=== PATIENT | female | born 2005 | race Two or more races ===

== ENCOUNTER 2023-03-07 00:29 | Day surgery (SDC) | payer MEDICAID, SELFPAY ==
[2023-03-07] VITALS (12 sets, daily range): BP systolic 116–155; BP diastolic 51–87; PULSE 59–87; RESP 16–18; TEMP 36.3–36.8; O2SAT 98–100; BMI 33.0
--- NOTE | ~2023-03-07 | US_ITS ---
EXAMINATION: US ABDOMEN LIMITED CLINICAL INFORMATION: Right upper quadrant/epigastric pain.. COMPARISON: None available. TECHNIQUE: Real-time imaging of the right upper quadrant abdominal viscera. FINDINGS: PANCREAS: Visualized portions of pancreas are normal in appearance. LIVER: Normal. The liver is normal in size. The liver contour is normal. Parenchymal echogenicity is normal. No focal hepatic lesion. There is no intrahepatic biliary duct dilatation seen. GALLBLADDER: The gallbladder is physiologically distended. Several gallstones are noted. Overall the gallbladder wall is normal in thickness although there is a localized area of gallbladder wall thickening measuring up to 5 mm the along the undersurface of the liver. There is some associated minimal fluid within the gallbladder wall in this region. Technologist reports a negative sonographic Ribeiro's sign. COMMON BILE DUCT: Normal in caliber measuring 0.3 cm in diameter. RIGHT KIDNEY: Normal. No hydronephrosis. No renal calculi or focal parenchymal lesions. The kidney measures 9.6 cm in maximum dimension. FREE FLUID: None. US/US abdomen limited IMPRESSION: Cholelithiasis. Overall the gallbladder wall is normal in thickness although there is a localized area of gallbladder wall thickening measuring up to 5 mm the undersurface of the liver. There is some associated fluid within the gallbladder wall in this region. Technologist reports a negative sonographic Ribeiro's sign. Findings are equivocal for acute cholecystitis. Further evaluation can be obtained with nuclear medicine imaging as clinically indicated.
[2023-03-07 01:08] LABS: MANUAL DIFF FLAG NO
[2023-03-07 01:09] LABS: Basophils Percent Auto 0.3 % (0-2); Eosinophils Percent Auto 0.4 % (0-4); Hematocrit 38.4 % (37.0-47.0); Hemoglobin 11.8 g/dl (12.0-16.0); Imm Gran Abs Auto 0.04 X10*3/uL (0.00-0.03); Imm Gran Pct Auto 0.4 % (0.0-0.4); Lymphocytes Absolute Auto 2.3 X10*3/uL (1.2-4.9); Lymphocytes Percent Auto 22.3 % (20-40); Mean Corpuscular HGB Conc 30.7 g/dl (31.0-35.0); Mean Corpuscular Hemoglobin 25.9 pg (27.0-33.0); Mean Corpuscular Volume 84.4 fL (80.0-98.0); Mean Platelet Volume 10.5 fL (9.4-12.3); Monocytes Absolute Auto 0.7 X10*3/uL (0.1-1.2); Monocytes Percent Auto 6.3 % (2-11); Neutrophils Absolute Auto 7.2 x10*3/uL (2.0-8.3); Neutrophils Percent Auto 70.3 % (45-73); Platelet Count 383 X10*3/uL (160-400); Red Blood Count 4.55 X10*6/uL (4.20-5.50); Red Cell Distribution Width 12.1 % (11.0-16.0); White Blood Count 10.3 X10*3/uL (4.8-10.8)
[2023-03-07 01:10] LABS: Appearance Urine Cloudy; Color Urine Dark Yellow; Glucose Urine UA Negative (Negative); Leukocyte Esterase Urine Negative (Negative); Nitrite Urine Negative (Negative); Specific Gravity - Urine >= 1.030 (1.005-1.025); UMIC TRIGGER UACC YES; Urine Blood Trace (Negative); Urine Ketones 80 mg/dL (Negative); Urine Protein 30 (1+) mg/dL (Neg-Trace)
[2023-03-07 01:12] LABS: Bacteria Urine None Seen (None Seen); WBC Urine 0-5 /HPF (0-5)
[2023-03-07 01:24] LABS: Alanine Aminotransferase 12 U/L (0-31); Albumin Level 4.7 g/dL (3.5-5.0); Alkaline Phosphatase 115 U/L (39-117); Anion Gap 19 (12-20); Aspartate Amino Transferase 13 U/L (5-31); Bilirubin Total 0.3 mg/dL (0.0-1.0); Blood Urea Nitrogen 9 mg/dL (9-16); Calcium 10.1 mg/dL (8.4-10.2); Carbon Dioxide 22 mmol/L (22-29); Chloride 102 mmol/L (96-108); Creatinine Clr Calc Pharmacy 133.9; Estimated Glomerular Filt Rate > 60; Glucose Random 102 mg/dL (60-115); Potassium 3.5 mmol/L (3.3-5.1); Sodium 139 mmol/L (135-145); Total Protein 8.5 g/dL (6.5-8.0)
--- NOTE | 2023-03-07 07:51 | ED_ITS ---
HPI - Abdominal Pain General Chief Complaint: Abdominal Pain Stated Complaint: Abd pain Time Seen by Provider: 03/07/23 07:41 Source: patient and family Mode of arrival: ambulatory History of Present Illness HPI narrative: 18-year-old female with complaints initial pain that started yesterday afternoon/evening in the right upper quadrant/epigastric area associated with nausea and vomiting. Although the nausea and vomiting have subsided patient denies any fever chills she continues to have right upper quadrant/epigastric pain with radiation into the back. Related Data Previous Rx's Medication Instructions Recorded hydrocodone 5 mg-acetaminophen 325 1 tab PO Q4-6H PRN pain #30 tabs 03/07/23 mg tablet Allergies Allergy/AdvReac Type Severity Reaction Status Date / Time No Known Allergies Allergy Verified 03/07/23 00:50 Review of Systems Review of Systems Pertinent positives and negatives as stated in HPI PMFSH Past Medical History Source: nursing notes reviewed Social History Social History Alcohol intake: never Physical Exam ED Vital Signs: Vital Signs - 24 hr 03/07/23 00:48 03/07/23 05:49 03/07/23 07:35 Temperature 98.2 F 98.3 F Pulse Rate 69 65 69 Respiratory Rate 18 18 16 Blood Pressure 129/72 138/84 116/78 Pulse Oximetry 99 99 99 Oxygen Delivery Method Room Air Room Air Room Air BMI result Body Mass Index 33.0 VITAL SIGNS: Reviewed. GENERAL: Well developed, well nourished, in no acute distress. HEAD: Normocephalic/atraumatic EYES: PERRLA, EOMI EARS: Ext canals without abnormality NOSE: Nares patent bilateral OROPHARYNX: no oral lesions noted, posterior pharynx clear NECK: Supple, no adenopathy LUNGS: Normal breath sounds. No adventitious sounds or accessory muscle use. SpO2<99> CARDIOVASCULAR: Regular rate and rhythm without noted murmurs ABDOMEN: Soft, tenderness to palpation in right upper quadrant/epigastric, non-d istended with bowel sounds. MUSCULOSKELETAL: No tenderness, deformities, or effusions noted on gross inspection. EXTREMITIES: No cyanosis, clubbing or edema. SKIN: Inspection of the skin reveals no rashes NEUROLOGIC: Alert and oriented x 4. Strength and sensation to light touch were grossly intact x 4. Medical Decision Making Medical Decision Making [facility] Narrative: 0815: 18-year-old female with history and clinical presentation, DDX: Gastritis, cholecystitis, pancreatitis, less likely felt to be pyelonephritis renal colic. Patient is status post appendectomy. I reviewed all investigations hematologic indices to not demonstrate a leukocytosis or left shift and there is a mild normocytic anemia without thrombocytopenia. Patient is afebrile, chemistry indices are grossly within normal limits without electrolyte abnormalities, there is no NADER and liver enzymes her without abnormalities as well. Urinalysis is negative for UTI and urine is negative. However, after review of ultrasound results there is obvious cholelithiasis with gallbladder wall thickening and evidence to suggest pericholecystic fluid, patient continues to be tender to palpation although the nausea has subsided. I contacted general surgery who agrees with IV/NPO/IV fluids/antibiotics. I to gas and blood cultures will be obtained prior to administration of antibiotics. Differential Diagnosis Differential Diagnoses: The differential diagnosis associated with the presentation includes Please see the discussion above Admission/Observation Consideration of admission/observation: Escalation of care including admission/observation considered Please see the discussion above Consult Healthcare Provider Management of the patient was discussed with: Coal Yard Supervisor Please see discussion above Lab Data [facility] Lab Attestation statement: I reviewed the patient's lab results. Please see discussion above 03/07/23 01:02 03/07/23 01:02 Labs: Lab Results 03/07/23 03/07/23 03/07/23 Range/Units 01:02 01:02 01:02 WBC 10.3 (4.8-10.8) X10*3/uL RBC 4.55 (4.20-5.50) X10*6/uL Hgb 11.8 L (12.0-16.0) g/dl Hct 38.4 (37.0-47.0) % MCV 84.4 (80.0-98.0) fL MCH 25.9 L (27.0-33.0) pg MCHC 30.7 L (31.0-35.0) g/dl RDW 12.1 (11.0-16.0) % Plt Count 383 (160-400) X10*3/uL MPV 10.5 (9.4-12.3) fL Immature Gran % (Auto) 0.4 (0.0-0.4) % Neut % (Auto) 70.3 (45-73) % Lymph % (Auto) 22.3 (20-40) % [place] % (Auto) 6.3 (2-11) % Eos % (Auto) 0.4 (0-4) % Baso % (Auto) 0.3 (0-2) % Lymph # (Auto) 2.3 (1.2-4.9) X10*3/uL [place] # (Auto) 0.7 (0.1-1.2) X10*3/uL Eos # (Auto) 0.0 (0.0-0.4) X10*3/uL Baso # (Auto) 0.0 (0.0-0.2) X10*3/uL Abs Immat Gran (auto) 0.04 H (0.00-0.03) X10*3/uL Absolute Neuts (auto) 7.2 (2.0-8.3) x10*3/uL Absolute Nucleated RBC 0.000 (0.0-0.012) X10*3/uL Nucleated RBC % (auto) 0.0 (0.0-0.2) /100WBC Sodium 139 (135-145) mmol/L Potassium 3.5 (3.3-5.1) mmol/L Chloride 102 (96-108) mmol/L Carbon Dioxide 22 (22-29) mmol/L Anion Gap 19 (12-20) BUN 9 (9-16) mg/dL Creatinine 0.69 (0.5-1.4) mg/dL Estim Creat Clear Calc 133.9 Estimated GFR > 60 Random Glucose 102 (60-115) mg/dL Lactic Acid (0.5-2.0) mmol/L Calcium 10.1 (8.4-10.2) mg/dL Total Bilirubin 0.3 (0.0-1.0) mg/dL AST 13 (5-31) U/L ALT 12 (0-31) U/L Alkaline Phosphatase 115 (39-117) U/L Total Protein 8.5 H (6.5-8.0) g/dL Albumin 4.7 (3.5-5.0) g/dL Lipase 19 (8-78) U/L Urine Color Dark Yellow Urine Appearance Cloudy Urine pH 6.0 (5.0-9.0) Ur Specific [place] >= 1.030 H (1.005-1.025) Urine Protein 30 (1+) H (Neg-Trace) mg/dL Urine Glucose (UA) Negative (Negative) mg/dL Urine Ketones 80 (Negative) mg/dL Urine Blood Trace H (Negative) Urine Nitrite Negative (Negative) Ur Leukocyte Esterase Negative (Negative) Urine RBC 11-20 H (0-2) /HPF Urine WBC 0-5 (0-5) /HPF Ur Squamous Epith Cells 3-5 (0-2) /HPF Urine Bacteria None Seen (None Seen) Hyaline Casts 3-5 (0-2) /LPF Urine Test (NEGATIVE) 03/07/23 03/07/23 Range/Units 01:02 08:29 WBC (4.8-10.8) X10*3/uL RBC (4.20-5.50) X10*6/uL Hgb (12.0-16.0) g/dl Hct (37.0-47.0) % MCV (80.0-98.0) fL MCH (27.0-33.0) pg MCHC (31.0-35.0) g/dl RDW (11.0-16.0) % Plt Count (160-400) X10*3/uL MPV (9.4-12.3) fL Immature Gran % (Auto) (0.0-0.4) % Neut % (Auto) (45-73) % Lymph % (Auto) (20-40) % [place] % (Auto) (2-11) % Eos % (Auto) (0-4) % Baso % (Auto) (0-2) % Lymph # (Auto) (1.2-4.9) X10*3/uL [place] # (Auto) (0.1-1.2) X10*3/uL Eos # (Auto) (0.0-0.4) X10*3/uL Baso # (Auto) (0.0-0.2) X10*3/uL Abs Immat Gran (auto) (0.00-0.03) X10*3/uL Absolute Neuts (auto) (2.0-8.3) x10*3/uL Absolute Nucleated RBC (0.0-0.012) X10*3/uL Nucleated RBC % (auto) (0.0-0.2) /100WBC Sodium (135-145) mmol/L Potassium (3.3-5.1) mmol/L Chloride (96-108) mmol/L Carbon Dioxide (22-29) mmol/L Anion Gap (12-20) BUN (9-16) mg/dL Creatinine (0.5-1.4) mg/dL Estim Creat Clear Calc Estimated GFR Random Glucose (60-115) mg/dL Lactic Acid 0.7 (0.5-2.0) mmol/L Calcium (8.4-10.2) mg/dL Total Bilirubin (0.0-1.0) mg/dL AST (5-31) U/L ALT (0-31) U/L Alkaline Phosphatase (39-117) U/L Total Protein (6.5-8.0) g/dL Albumin (3.5-5.0) g/dL Lipase (8-78) U/L Urine Color Urine Appearance Urine pH (5.0-9.0) Ur Specific [place] (1.005-1.025) Urine Protein (Neg-Trace) mg/dL Urine Glucose (UA) (Negative) mg/dL Urine Ketones (Negative) mg/dL Urine Blood (Negative) Urine Nitrite (Negative) Ur Leukocyte Esterase (Negative) Urine RBC (0-2) /HPF Urine WBC (0-5) /HPF Ur Squamous Epith Cells (0-2) /HPF Urine Bacteria (None Seen) Hyaline Casts (0-2) /LPF Urine Test NEGATIVE (NEGATIVE) Medications Administered Discontinued Medications Generic Name Dose Route Start Last Admin Trade Name Freq PRN Reason Stop Dose Admin Piperacillin Sod/Tazobactam 50 mls @ 100 mls/hr 03/07/23 08:25 03/07/23 10:22 Sod 3.375 gm/ Sodium Chloride IV 03/07/23 08:54 Infused ONCE ONE Infusion Sodium Chloride 1,000 mls @ 999 mls/hr 03/07/23 08:30 03/07/23 10:01 Ns IV 03/07/23 09:30 Infused .Q1H1M SANTO Infusion Acetaminophen 1,000 mg in 100 mls @ 400 mls/hr 03/07/23 12:20 03/07/23 14:54 Ofirmev IV 03/07/23 12:34 400 mls/hr ONCE ONE Administration Ketorolac Tromethamine 15 mg 03/07/23 08:31 03/07/23 08:43 Ketorolac Tromethamine 30 Mg/Ml Vial IVPUSH 03/07/23 08:32 15 mg ONCE ONE Administration Ondansetron HCl 4 mg 03/07/23 08:31 03/07/23 08:43 Ondansetron Hcl 4 Mg/2 Ml Vial IVPUSH 03/07/23 08:32 4 mg ONCE ONE Administration Oxycodone HCl 5 mg 03/07/23 12:20 03/07/23 14:45 Oxycodone Hcl Immed Release 5 Mg Tablet PO 5 mg ONCE PRN Administration Pain, Severe (Pain Scale 7-10) Critical Care Time Critical Care Time Critical Care Time: Yes Total Critical Care Time: 30 Attestation: I personally attest to this time spent taking care of the patient. Discharge Plan Discharge Clinical Impression: Cholecystitis, acute Patient Disposition: Admitted As Inpatient Transfer Details: Transferred to OR Discharge Date/Time: 03/07/23 12:52
[2023-03-07 08:00] LABS: UPreg QC Valid YES; Urine Pregnancy NEGATIVE (NEGATIVE)
[2023-03-07] MEDS: 0.9 % Sodium Chloride 1,000 ML 999 ML IV (08:35)
[2023-03-07] MEDS: ondansetron HCL 4 MG/2 ML VIAL IVPUSH (08:43)
[2023-03-07] MEDS: Ketorolac Tromethamine 30 MG/ML VIAL 15 MG IVPUSH (08:43)
[2023-03-07 08:53] LABS: Lactic Acid 0.7 mmol/L (0.5-2.0)
[2023-03-07 08:55] LABS: Lipase 19 U/L (8-78)
--- NOTE | 2023-03-07 09:42 | PC.NURSE ---
abx delayed dt inability to obtain second blood cultures.
[2023-03-07] MEDS: Piperacillin Sodium/Tazobactam 3.375 GM in 0.9 % Sodium Chloride 50 ML IV (09:44)
--- NOTE | 2023-03-07 09:45 | PHA.MEDREC ---
Pharmacy Consult ? Medication Reconciliation Pharmacy has completed the medication reconciliation.
--- NOTE | 2023-03-07 12:18 | P.CONAN_ITS ---
HPI - Anesthesia Eval Consult details Narrative: Cholelithiasis [facility] Family History Family history of problems with anesthesia: No Surgical History History of Problems with Anesthesia: No Social History Social History Alcohol intake: never Meds Allergies Allergy/AdvReac Type Severity Reaction Status Date / Time No Known Allergies Allergy Verified 03/07/23 00:50 Exam Exam Date and Time: March 07, 2023 1218 Height,Weight and Vital Signs: Height 5 ft 3 in Weight 84.5 kg Last Vital Signs Temp 98.3 F 03/07/23 07:35 Pulse 60 03/07/23 10:32 Resp 16 03/07/23 10:32 BP 122/74 03/07/23 10:32 Pulse Ox 98 03/07/23 10:32 O2 Del Method Room Air 03/07/23 10:32 Pertinent Lab Results Pertinent Lab Results: Laboratory Tests 03/07/23 03/07/23 03/07/23 01:02 01:02 01:02 WBC 10.3 RBC 4.55 Hgb 11.8 L Hct 38.4 MCV 84.4 MCH 25.9 L MCHC 30.7 L RDW 12.1 Plt Count 383 MPV 10.5 Immature Gran % (Auto) 0.4 Neut % (Auto) 70.3 Lymph % (Auto) 22.3 [place] % (Auto) 6.3 Eos % (Auto) 0.4 Baso % (Auto) 0.3 Lymph # (Auto) 2.3 [place] # (Auto) 0.7 Eos # (Auto) 0.0 Baso # (Auto) 0.0 Abs Immat Gran (auto) 0.04 H Absolute Neuts (auto) 7.2 Absolute Nucleated RBC 0.000 Nucleated RBC % (auto) 0.0 Sodium 139 Potassium 3.5 Chloride 102 Carbon Dioxide 22 Anion Gap 19 BUN 9 Creatinine 0.69 Estim Creat Clear Calc 133.9 Estimated GFR > 60 Random Glucose 102 Lactic Acid Calcium 10.1 Total Bilirubin 0.3 AST 13 ALT 12 Alkaline Phosphatase 115 Total Protein 8.5 H Albumin 4.7 Lipase 19 Urine Color Dark Yellow Urine Appearance Cloudy Urine pH 6.0 Ur Specific [place] >= 1.030 H Urine Protein 30 (1+) H Urine Glucose (UA) Negative Urine Ketones 80 Urine Blood Trace H Urine Nitrite Negative Ur Leukocyte Esterase Negative Urine RBC 11-20 H Urine WBC 0-5 Ur Squamous Epith Cells 3-5 Urine Bacteria None Seen Hyaline Casts 3-5 Urine Test 03/07/23 03/07/23 01:02 08:29 WBC RBC Hgb Hct MCV MCH MCHC RDW Plt Count MPV Immature Gran % (Auto) Neut % (Auto) Lymph % (Auto) [place] % (Auto) Eos % (Auto) Baso % (Auto) Lymph # (Auto) [place] # (Auto) Eos # (Auto) Baso # (Auto) Abs Immat Gran (auto) Absolute Neuts (auto) Absolute Nucleated RBC Nucleated RBC % (auto) Sodium Potassium Chloride Carbon Dioxide Anion Gap BUN Creatinine Estim Creat Clear Calc Estimated GFR Random Glucose Lactic Acid 0.7 Calcium Total Bilirubin AST ALT Alkaline Phosphatase Total Protein Albumin Lipase Urine Color Urine Appearance Urine pH Ur Specific [place] Urine Protein Urine Glucose (UA) Urine Ketones Urine Blood Urine Nitrite Ur Leukocyte Esterase Urine RBC Urine WBC Ur Squamous Epith Cells Urine Bacteria Hyaline Casts Urine Test NEGATIVE Airway Mallampati Class: II TM Dist: >3cm Neck ROM: Full Loose/Missing/Broken Teeth: No Heart: RRR Lungs: CTA Assessment and Plan Assessment Anesthesia Assessment: Anesthesia Plan Discussed and Chart Reviewed Final Anesthetic Review Family History of Problems with Anesthesia: No History of Problems with Anesthesia: No NPO: Yes ASA Class: I and Emergency Final Preanesthetic Review: No Changes in Pt Med Stat, Meds/Allgs Chart Reviewed, Consent Obtained/Reviewed and Anes Risks/Benef Reviewed Patient Risk: Low Procedure Risk: Intermediate Anesthetic Plan Anesthetic Plan: GA Disposition: Standard PACU
--- NOTE | 2023-03-07 12:25 | PC.NURSE ---
Addendum entered by Carolyn Hoffman RN 03/07/23 12:56: PT transferred to surgery with surgeon, mom escorted to waiting room, RN took over at Pre-op Original Note: report given to surgery, pt has removed jewelry and mom has all that was removed.
--- NOTE | 2023-03-07 12:29 | P.HPGS_ITS ---
History of Present Illness History of Present Illness Date of Service: 03/07/23 Chief complaint: Abd pain Narrative: Shasta Bryson is a 18 year old female presents with approximate 1 day history of right upper quadrant pain rating around her back associated nausea vomiting. Workup included sonogram demonstrates findings consistent with the acute cholecystitis. CT was reviewed and patient evaluated. Past surgical history appendectomy laparoscopic. No significant medical pr oblems. No known drug allergies LFTs within normal limits. Sonogram reviewed [facility] Social History Social History Alcohol intake: never Smoked in Last 30 Days: No Use of substances other than those prescribed or required for medical reasons: No Advance Directives: No Meds Allergies Allergy/AdvReac Type Severity Reaction Status Date / Time No Known Allergies Allergy Verified 03/07/23 00:50 Active Medications: Current Medications Fentanyl (Fentanyl Citrate/Pf 100 Mcg/2 Ml Vial) 50 mcg IVPUSH Q5M PRN; Protocol PRN Reason: Pain, Severe (Pain Scale 7-10) Hydromorphone HCl (Hydromorphone Hcl 0.5 Mg/0.5 Ml Syringe) 0.5 mg IVPUSH Q5M PRN; Protocol PRN Reason: Pain, Severe (Pain Scale 7-10) Promethazine HCl 12.5 mg/ (Sodium Chloride) 50.5 mls @ 202 mls/hr IV ONCE PRN PRN Reason: Nausea and Vomiting Acetaminophen (Ofirmev) 1,000 mg in 100 mls @ 400 mls/hr IV ONCE ONE Stop: 03/07/23 12:34 Ondansetron HCl (Ondansetron Hcl 4 Mg/2 Ml Vial) 4 mg IVPUSH ONCE PRN PRN Reason: Nausea and Vomiting Oxycodone HCl (Oxycodone Hcl Immed Release 5 Mg Tablet) 5 mg PO ONCE PRN PRN Reason: Pain, Severe (Pain Scale 7-10) Home Medications Medication Instructions Recorded Confirmed Last Taken Type No Known Home Meds 03/07/23 03/07/23 Unknown History Physical Exam Vital Signs: Vital Signs: Last Vital Signs Temp 98.3 F 03/07/23 07:35 Pulse 60 03/07/23 10:32 Resp 16 03/07/23 10:32 BP 122/74 03/07/23 10:32 Pulse Ox 98 07/29/23 10:32 O2 Del Method Room Air 03/07/23 10:32 BMI result Body Mass Index 33.0 Const: Other: Patient was evaluated in presence of her mother. Chest: Other: Chest breath sounds bilaterally, HS 1 in 2 GI: Other: Abdomen moderately corpulent. Laparoscopic appendectomy scars well healed. Marked right upper quadrant tenderness. Results Results Labs: Short CBC 03/07/23 Range/Units 01:02 WBC 10.3 (4.8-10.8) X10*3/uL Hgb 11.8 L (12.0-16.0) g/dl Hct 38.4 (37.0-47.0) % Plt Count 383 (160-400) X10*3/uL BMP 03/07/23 01:02 Sodium 139 Potassium 3.5 Chloride 102 Carbon Dioxide 22 BUN 9 Creatinine 0.69 Calcium 10.1 Liver Function 03/07/23 Range/Units 01:02 Total Bilirubin 0.3 (0.0-1.0) mg/dL AST 13 (5-31) U/L ALT 12 (0-31) U/L Alkaline Phosphatase 115 (39-117) U/L Albumin 4.7 (3.5-5.0) g/dL Urine 03/07/23 03/07/23 Range/Units 01:02 01:02 Urine Color Dark Yellow Urine Appearance Cloudy Urine pH 6.0 (5.0-9.0) Ur Specific [place] >= 1.030 H (1.005-1.025) Urine Protein 30 (1+) H (Neg-Trace) mg/dL Urine Glucose (UA) Negative (Negative) mg/dL Urine Test NEGATIVE (NEGATIVE) Assessment and Plan (1) Cholecystitis, acute: Status: Acute Plan Risks, benefits, alternatives of laparoscopic possible open cholecystectomy reviewed with the patient and her mother and included but not limited to bleeding, infection, recurrence of symptoms, numbness, pain, scarring, bowel or duct injury or leak and the patient wishes to proceed. All questions were answered. Arrangements will be made for this for today. Time Spent With Patient Time: Total time managing care of this patient today ____ minutes. Quality Stroke Does the patient have a stroke diagnosis?: No VTE Prior VTE?: No VTE Risk Level:: Surgical - low VTE Device Contraindication: Treatment Not Indicated VTE Drug Contraindication: Treatment Not Indicated Procedures Date of Service Date of Service: 03/07/23
--- NOTE | 2023-03-07 14:20 | W.PM.OPN ---
Operative Note Operative Note Date of Service: 03/07/23 Narrative: Preoperative diagnosis: []Acute cholecystitis Postop diagnosis: [] hydrops of gallbladder Procedure [] laparoscopic cholecystectomy Surgeon: [] Nasir Reproduction Production Manager: [] Type of Anesthesia: [] general Indication for surgery: [] Markedly edematous gallbladder. Aspiration demonstrated findings consistent with hydrops. Corpulent abdomen. Intrahepatic gallbladder. Procedure; patient Was brought to the operating room, placed on the operative table in a supine position, and after an adequate level of general anesthesia was induced, the patient's abdomen was prepped and draped in usual sterile fashion. Using a supraumbilical curvilinear incision from a previous scar from a prior laparoscopic appendectomy, this carried down through skin, subcutaneous tissue, were Flores technique was used to insufflate the abdominal cavity to 15 mm of CO2. Upper midline MRI subcostal ports were placed under direct laparoscopic view, and the patient was placed in reverse Trendelenburg position, tilted to the left. Findings were as noted above. Gallbladder was initially decompressed because of his marked urgent a T where clear fluid was aspirated consistent with hydrops. Gallbladder was then grasped with laparoscopic graspers, and retracted superiorly and laterally. Hilum was approached. Common bile duct was identified and preserved throughout the procedure. Cystic artery and cystic duct were each identified, circumferentially skeletonized, and each traced directly to the gallbladder and critical view obtained. Each was clipped proximally x2, distally x1, and transected. Gallbladder was then cauterized the gallbladder fossa using electro Bovie. As noted, the gallbladder is markedly intrahepatic. A small posterior setting the vessel in the gallbladder fossa was clipped as well. Once removed, gallbladder was placed in an Endo catch bag and retrieved through the umbilical port. Abdominal cavity was copiously irrigated, and secured hemostasis. All ports were removed under direct laparoscopic view. Wounds were closed in the following manner; umbilical wound had its fascia reapproximated using interrupted 0 Vicryl suture. Skin wounds were closed using subcuticular 4-0 Vicryl sutures followed by Steri-Strips and sterile dressings. Wounds were infiltrated 0.5 some marked at completion. Sponge, needle, instrument counts reported correct. Patient tolerated the procedure well and emerged anesthesia in stable condition. EBL minimal
[2023-03-07] MEDS: oxyCODONE HCl Immed Release 5 MG TABLET PO (14:45)
[2023-03-07] MEDS: Acetaminophen 1,000 MG/100 ML PIGGYBACK 400 MG IV (14:54)
--- NOTE | 2023-03-08 09:53 | HO.POSTANES ---
Post Anesthesia Evaluation Post Anesthesia Evaluation Date of Service: 03/08/23 Anesthesia: General Endotracheal-GETA Mental Status: Awake Pain Control: Satisfactory Nausea/Vomiting: None Hydration: Adequate Anesthesia-Related Issues: No Anes. Related Issues
== END 2023-03-07 15:35 | disposition home or self-care (01) ==
LOC: HO.ED 07:41 → HO.SSS 11:02
PROVIDERS: Emergency Provider Student in an Organized Health Care Education/Training Program; PCP Family Medicine; Visit Provider Surgery
PROC: 0FT44ZZ Resection of Gallbladder, Percutaneous Endoscopic Approach (ICD-10-PCS; CPT 47562; principal; 2023-03-07 12:30)
DX: K80.12 Calculus of gallbladder with acute and chronic cholecystitis without obstruction (principal); K82.1 Hydrops of gallbladder; R10.11 Right upper quadrant pain; Q44.1 Other congenital malformations of gallbladder; D64.9 Anemia, unspecified
CPT/HCPCS: 47562; 36415; 76705; 80053; 81001; 81025; 83605; 83690; 85025; 87040; 88304; 96361; 96365; 96375; 99285; J0131; J1100; J1885; J2250; J2405; J2543; J2795; J3010

== ENCOUNTER → 2023-03-07 10:55 | Outpatient (BNV) | payer MEDICAID, SELFPAY | PROVIDERS: Emergency Provider Student in an Organized Health Care Education/Training Program; PCP Family Medicine; Visit Provider Surgery | DX: K81.0 Acute cholecystitis (principal) | CPT/HCPCS: 47562; 99223 ==

== ENCOUNTER 2023-03-18 09:20 | Outpatient (AMB) | payer MEDICAID, SELFPAY ==
[2023-03-18 09:23] VITALS: BP 123/57; PULSE 78
--- NOTE | 2023-03-18 09:23 | A.OFFVIS_ITS ---
Intake Vital Signs 03/18/23 09:23 Weight 181 lb BP 123/57 L Blood Pressure Location Rt brachial Position Sitting Pulse 78 Intake Visit Reasons: S/p lap antwan Intake Note: Patient here s/p lap antwan. Patient feels like incision above umbilicus has skin sticking out. Denies oozing, or bleeding. No longer taking rx pain meds. 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 Aside from mild incisional discomfort she is doing well. She has time diet. She is back to her baseline bowel habits. She is slowly but steadily increasing her activity level. [facility] Surgical History (Updated 03/18/23 @ 09:32 by Domenico Best MD) Cholecystitis, acute Hx laparoscopic cholecystectomy (04/07/22) Social History Alcohol intake: never Physical Exam Vital Signs: Last Vital Signs Pulse 78 03/18/23 09:23 BP 123/57 L 03/18/23 09:23 Eyes Other: Anicteric GI Other: Abdomen soft. All wounds clean dry and intact. Assessment & Plan Assessment & Plan (1) Cholecystitis, acute: Code(s): K81.0 - Acute cholecystitis Plan Patient has been given local instructions including avoiding strenuous activities for next 2-3 weeks time, and will otherwise follow up p.r.n. Coding Level of Care Code Global (66416) Diagnoses Cholecystitis, acute K81.0
== END 2023-03-18 09:30 | disposition home or self-care (01) ==
LOC: HO.HGS 09:20
PROVIDERS: PCP Family Medicine; Visit Provider Surgery
DX: K81.0 Acute cholecystitis (principal)
CPT/HCPCS: 99024

== ENCOUNTER → 2023-03-18 09:20 | Outpatient (BNVA) | payer MEDICAID, SELFPAY | PROVIDERS: PCP Family Medicine; Visit Provider Surgery ==

== ENCOUNTER 2023-10-12 16:16 | Outpatient (REF) | payer MEDICAID, SELFPAY ==
[2023-10-12 18:44] LABS: CT PCR NOT DETECTED (Not Detect.); NG PCR NOT DETECTED (Not Detect.)
== END 2023-10-12 16:17 | disposition home or self-care (01) ==
LOC: HO.HHCLNP 16:16
PROVIDERS: Visit Provider Advanced Practice Midwife
DX: Z11.3 Encounter for screening for infections with a predominantly sexual mode of transmission (principal)
CPT/HCPCS: 0353U

== ENCOUNTER 2024-11-11 10:02 | Outpatient (REF) | payer MEDICAID, SELFPAY ==
[2024-11-11 11:21] LABS: MANUAL DIFF FLAG NO
--- OUTSIDE RECORDS SUMMARY | 2024-11-11 11:23 | XMS_ITS | Clinical Summary ---
Author Organization [facility] Address [address] [place] [address] Care Team Providers Care Stallion Manager Name Role Phone Unavailable Primary Care Provider Unavailabl e Source Comments PLEASE NOTE, if this patient is a minor, it may be UNLAWFUL to discuss sensitive information that is contained in these records (such as FAMILY PLANNING, MENTAL HEALTH or SUBSTANCE ABUSE) with the minor patient's parent or other person without the patient's specific authorization.[facility] Immunizations Immunization Administration Dates Next Due PFIZER COVID VACCINE, PURPLE CAP, 12+ 01/02/2021 ,12/11/2020 Social History Tobacco Use Types Packs/Day Years Used Date Smoking Tobacco: Never Assessed Social Connections Answer Date Recorded Social Connections and Isolation 0 12/11/2020 Financial Resource Strain Answer Date R ecorded Financial Resource Strain 0 2020 Stress Answer Date Recorded Stress 0 12/11/2020 Physical Activity Answer Date Recorded Physical Activity 0 12/11/2020 Food Insecurity Answer Date Recorded Food 0 12/11/2020 Transportation Needs Answer Date Record ed Transportation 0 12/11/2020 Housing Stability Answer Date Recorded Housing 0 12/11/2020 Safety and Environment Answer Date Vicente rded Safety 0 12/11/2020 Utilities Answer Date Recorded Utilities 0 12/11/2020 Employment Answer Date Recorded Employment 0 12/11/2020 Comments Unknown Sex and Gender Information Value Date Recorded Sex Assigned at Female 01/02/2021 12:19 PM PDT Legal Sex Male 10:45 AM PDT Gender Identity Female 01/02/2021 12:19 PM PDT Sexual Orientation Not on file Plan of Treatment Health Maintenance Due Date Last Done Comments Anxiety Screening 2003 HPV Screening 2003 Hepatitis C Screening 2003 Pap + HPV 2003 Tobacco Screening 2003 Chlamydia Screening 02/07/2016 Gonorrhea Screening 02/07/2016 Imm-Varicella (1 of 2 - 13+ 2-dose series) 02/07/2016 HIV Screening 2018 Imm-HPV (1 - 3-dose series) 2018 Relationship Safety Screening/Counseling 2018 Hypertension Screening (#1) 2021 Imm-DTaP/Tdap/Td (1 - Tdap) 2022 Imm-Hepatitis B (1 of 3 - 19+ 3-dose series) 2022 Cervical Cancer Screening 02/07/2024 Pap Smear 02/07/2024 [id number] ( - 2023- season) 2024 01/02/2021, 12/11/2020 Imm-Influenza (#1) 2024 Alcohol and Drug Screen 08/10/2024 Depression Annual Screen 08/10/2024 Cervical Ablation/Cold-Knife Conization Discontinued Cervical Cryotherapy Discontinued Colposcopy Discontinued Endometrial Biopsy Discontinued Excision/Leep Discontinued HPV Genotyping Discontinued Imm-Hepatitis A Aged Out No longer el igible based on patient's age to complete this topic Vaginal Pap Discontinued Vulvoscopy Discontinued Insurance [facility]
[2024-11-11 11:33] LABS: Basophils Percent Auto 0.4 % (0-2); Eosinophils Absolute Auto 0.2 X10*3/uL (0.0-0.4); Eosinophils Percent Auto 4.8 % (0-4); Hematocrit 37.1 % (37.0-47.0); Hemoglobin 11.4 g/dl (12.0-16.0); Imm Gran Abs Auto 0.02 X10*3/uL (0.00-0.03); Imm Gran Pct Auto 0.4 % (0.0-0.4); Lymphocytes Absolute Auto 2.1 X10*3/uL (1.2-4.9); Lymphocytes Percent Auto 41.7 % (20-40); Mean Corpuscular HGB Conc 30.7 g/dl (31.0-35.0); Mean Corpuscular Hemoglobin 26.5 pg (27.0-33.0); Mean Corpuscular Volume 86.3 fL (80.0-98.0); Mean Platelet Volume 10.6 fL (9.4-12.3); Monocytes Absolute Auto 0.4 X10*3/uL (0.1-1.2); Monocytes Percent Auto 6.9 % (2-11); Neutrophils Absolute Auto 2.3 x10*3/uL (2.0-8.3); Neutrophils Percent Auto 45.8 % (45-73); Platelet Count 292 X10*3/uL (160-400)
[2024-11-11 11:49] LABS: Estimated Average Glucose 105 mg/dL; Hemoglobin A1C 107.8566 umol/L; Hemoglobin A1c % 5.3 % (<6.0); Total Hemoglobin (HGBA1C) 3101.5595 umol/L
[2024-11-11 12:22] LABS: Alanine Aminotransferase 15 U/L (0-31); Albumin Level 3.8 g/dL (3.5-5.0); Alkaline Phosphatase 113 U/L (39-117); Anion Gap 9 (12-20); Aspartate Amino Transferase 18 U/L (5-31); Bilirubin Total 0.2 mg/dL (0.0-1.0); Blood Urea Nitrogen 10 mg/dL (9-16); Calcium 8.8 mg/dL (8.4-10.2); Carbon Dioxide 25 mmol/L (22-29); Chloride 110 mmol/L (96-108); Estimated Glomerular Filt Rate > 60; Glucose Random 98 mg/dL (60-115); Potassium 3.9 mmol/L (3.3-5.1); Sodium 140 mmol/L (135-145); Total Protein 6.8 g/dL (6.5-8.0)
== END 2024-11-11 10:03 | disposition home or self-care (01) ==
LOC: HO.HHCL 10:02
PROVIDERS: Visit Provider Nurse Practitioner Family
DX: E66.812 Obesity, class 2 (principal); Z68.38 Body mass index [BMI] 38.0-38.9, adult
CPT/HCPCS: 36415; 80053; 83036; 85025

== ENCOUNTER 2025-01-27 16:16 | Outpatient (REF) | payer MEDICAID, SELFPAY ==
[2025-01-27 18:21] LABS: CT PCR NOT DETECTED (Not Detect.); NG PCR NOT DETECTED (Not Detect.)
== END 2025-01-27 16:17 | disposition home or self-care (01) ==
LOC: HO.HHCLNP 16:16
PROVIDERS: Visit Provider Nurse Practitioner Family
DX: Z00.00 Encounter for general adult medical examination without abnormal findings (principal)
CPT/HCPCS: 87491; 87591

== ENCOUNTER 2025-03-03 16:53 | Emergency (ER) | payer MEDICAID, SELFPAY ==
[2025-03-03 17:22] VITALS: BP 123/53; PULSE 79; RESP 17; TEMP 36.3; O2SAT 100; BMI 38.8
--- NOTE | 2025-03-03 17:29 | ED.GENADULT ---
HPI - General Adult General Chief complaint: Headache Stated complaint: headache Time Seen by Provider: 03/03/25 20:50 Source: patient Mode of arrival: ambulatory Limitations: no limitations History of Present Illness ED Provider: HPI narrative: Patient's history of frequent headaches comes here for headache on the right side more than usual for last 1 week got worse for last 24 hours associated with light sensitivity no recent injury no fever no chills no nausea no vomiting Related Data Previous Rx's ?Medication ?Instructions ?Recorded fdamvgolia-busyewevdoftw-gmitinhg 1 tab PO Q6H PRN haeadace #20 tabs 03/03/25 50 mg-325 mg-40 mg tablet Allergies Allergy/AdvReac Type Severity Reaction Status Date / Time No Known Allergies Allergy Verified 03/03/25 17:23 Review of Systems Review of Systems: Yes all other systems are reviewed and are negative [facility] Past Medical History Surgical History Hx laparoscopic cholecystectomy (04/07/22) Cholecystitis, acute Social History Social History Alcohol intake: never Advance Directives: No Advance Directives Information Provided: No Do you have a plan to hurt others: No Plan Physical Exam ED Vital Signs: Vital Signs - 24 hr 03/03/25 17:22 03/03/25 20:36 03/03/25 21:51 Temperature 97.4 F 98.0 F 98.0 F Pulse Rate 79 80 80 Respiratory Rate 17 16 16 Blood Pressure 123/53 L 121/57 L 121/57 L Pulse Oximetry 100 96 96 Oxygen Delivery Method Room Air Room Air Room Air BMI result Body Mass Index 38.8 Appearance: Alert. Oriented X3. No acute distress. Eyes: PERRLA, No Nystagmus ENT: Pharynx normal. Oral Mucosa moist tympanic membrane intact no temporal artery tenderness Neck: Normal inspection. Neck supple. CVS: Normal heart rate and rhythm. Pulses normal. Respiratory: No respiratory distress. Equal air entry bilateral, no wheezing/rales/rhonchi Abdomen: Soft and nontender. Bowel sounds are present, no mass palpable, no CVA tenderness Skin: Skin warm and dry. Normal skin color. Normal skin turgor. Extremities: No lower extremity edema. No calf tenderness Neuro: Oriented X 3. No motor deficit. No sensory deficit.No cerebellar signs , cranial nerves II-XII intact Course Course Course Narrative: RME, this is a rapid medical exam performed by Peterson Alston please refer to primary provider for complete H&P- 20-year-old female presents for evaluation of a right-sided headache radiating to her right ear for the last week. No neuro deficits. Denies any head trauma. Plan for labs, urinalysis and Medications Administered Discontinued Medications Generic Name Dose Route Start Last Admin Trade Name Freq PRN Reason Stop Dose Admin Acetaminophen/Butalbital/Caffeine 1 tab 03/03/25 21:14 03/03/25 21:32 Butalb/Acetamin/Caff 50/325/40 Tablet PO 03/03/25 21:15 1 tab ONCE ONE Administration Ketorolac Tromethamine 30 mg 03/03/25 21:27 03/03/25 21:32 Ketorolac Tromethamine 30 Mg/Ml Vial IM 03/03/25 21:28 30 mg ONCE ONE Administration Medical Decision Making Medical Decision Making [facility] Narrative: Patient clinically with migraine headache will give Fioricet and Toradol discharge on Fioricet Lab Data [facility] Lab Attestation statement: I reviewed the patient's lab results. 03/03/25 18:01 03/03/25 18:01 Labs: Lab Results 03/03/25 03/03/25 Range/Units 18:01 20:38 WBC 6.3 (4.8-10.8) X10*3/uL RBC 4.41 (4.20-5.50) X10*6/uL Hgb 11.7 L (12.0-16.0) g/dl Hct 36.9 L (37.0-47.0) % MCV 83.7 (80.0-98.0) fL MCH 26.5 L (27.0-33.0) pg MCHC 31.7 (31.0-35.0) g/dl RDW 12.3 (11.0-16.0) % Plt Count 323 (160-400) X10*3/uL MPV 10.2 (9.4-12.3) fL Immature Gran % (Auto) 0.2 (0.0-0.4) % Neut % (Auto) 46.5 (45-73) % Lymph % (Auto) 43.4 H (20-40) % [place] % (Auto) 5.5 (2-11) % Eos % (Auto) 4.1 H (0-4) % Baso % (Auto) 0.3 (0-2) % Lymph # (Auto) 2.7 (1.2-4.9) X10*3/uL [place] # (Auto) 0.4 (0.1-1.2) X10*3/uL Eos # (Auto) 0.3 (0.0-0.4) X10*3/uL Baso # (Auto) 0.0 (0.0-0.2) X10*3/uL Abs Immat Gran (auto) 0.01 (0.00-0.03) X10*3/uL Absolute Neuts (auto) 2.9 (2.0-8.3) x10*3/uL Absolute Nucleated RBC 0.000 (0.0-0.012) X10*3/uL Nucleated RBC % (auto) 0.0 (0.0-0.2) /100WBC Sodium 139 (135-145) mmol/L Potassium 3.8 (3.3-5.1) mmol/L Chloride 108 (96-108) mmol/L Carbon Dioxide 24 (22-29) mmol/L Anion Gap 11 L (12-20) BUN 11 (9-16) mg/dL Creatinine 0.64 (0.5-1.4) mg/dL Estim Creat Clear Calc 154.9 Estimated GFR > 60 Random Glucose 88 (60-115) mg/dL Calcium 9.7 D (8.4-10.2) mg/dL Total Bilirubin 0.2 (0.0-1.0) mg/dL AST 22 (5-31) U/L ALT 16 (0-31) U/L Alkaline Phosphatase 134 H (39-117) U/L Total Protein 7.5 (6.5-8.0) g/dL Albumin 4.2 (3.5-5.0) g/dL Lipase 12 (8-78) U/L Beta HCG, Quant < 2 mIU/mL Urine Color Yellow Urine Appearance Clear Urine pH 5.5 (5.0-9.0) Ur Specific [place] 1.025 (1.005-1.025) Urine Protein Negative (Neg-Trace) mg/dL Urine Glucose (UA) Negative (Negative) mg/dL Urine Ketones Trace (Negative) mg/dL Urine Blood Negative (Negative) Urine Nitrite Negative (Negative) Ur Leukocyte Esterase Negative (Negative) Urine RBC 0-2 (0-2) /HPF Urine WBC 0-5 (0-5) /HPF Ur Squamous Epith Cells 0-2 (0-2) /HPF Urine Bacteria None Seen (None Seen) Hyaline Casts 0-2 (0-2) /LPF Influenza Type A (PCR) NEGATIVE (Negative) Influenza Type B (PCR) NEGATIVE (Negative) RSV RNA Qual (PCR) NEGATIVE (Negative) SARS-CoV-2 RNA (RT-PCR) NEGATIVE (Negative) Discharge Plan Discharge Clinical Impression: Migraine Patient Disposition: Home, Self-Care Instructions: Migraine Headache (ED) Additional Instructions: Take medication as prescribed Follow with your PCP Prescriptions: New qdnkttqinl-mnrzldeofrpwg-seai 50-325-40 mg tablet 1 tab PO Q6H PRN (Reason: haeadace) Qty: 20 0RF Stand Alone Forms: Work/School Release Interventions: ED Discharge Assessment Last Done: 03/03/25 21:51 Discharge Date/Time: 03/03/25 21:52 Print Language: Korean
[2025-03-03 18:12] LABS: MANUAL DIFF FLAG NO
[2025-03-03 18:15] LABS: Hematocrit 36.9 % (37.0-47.0); Hemoglobin 11.7 g/dl (12.0-16.0); Imm Gran Abs Auto 0.01 X10*3/uL (0.00-0.03); Imm Gran Pct Auto 0.2 % (0.0-0.4); Lymphocytes Absolute Auto 2.7 X10*3/uL (1.2-4.9); Mean Corpuscular HGB Conc 31.7 g/dl (31.0-35.0); Mean Corpuscular Hemoglobin 26.5 pg (27.0-33.0); Mean Corpuscular Volume 83.7 fL (80.0-98.0); NRBC Abs Auto 0.000 X10*3/uL (0.0-0.012); NRBC Pct Auto 0.0 /100WBC (0.0-0.2); Platelet Count 323 X10*3/uL (160-400); Red Blood Count 4.41 X10*6/uL (4.20-5.50); White Blood Count 6.3 X10*3/uL (4.8-10.8)
[2025-03-03 18:31] LABS: Alanine Aminotransferase 16 U/L (0-31); Albumin Level 4.2 g/dL (3.5-5.0); Alkaline Phosphatase 134 U/L (39-117); Anion Gap 11 (12-20); Aspartate Amino Transferase 22 U/L (5-31); Blood Urea Nitrogen 11 mg/dL (9-16); Calcium 9.7 mg/dL (8.4-10.2); Carbon Dioxide 24 mmol/L (22-29); Chloride 108 mmol/L (96-108); Creatinine Clr Calc Pharmacy 154.9; Estimated Glomerular Filt Rate > 60; Lipase 12 U/L (8-78); Potassium 3.8 mmol/L (3.3-5.1); Sodium 139 mmol/L (135-145); Total Protein 7.5 g/dL (6.5-8.0)
[2025-03-03 18:49] LABS: Resp Syncy Virus RNA Qual PCR NEGATIVE (Negative); SARS COV2 PCR INHOUSE NEGATIVE (Negative)
[2025-03-03 20:36] VITALS: BP 121/57; PULSE 80; RESP 16; TEMP 36.7; O2SAT 96
[2025-03-03 20:50] LABS: Appearance Urine Clear; Glucose Urine UA Negative (Negative); PH 5.5 (5.0-9.0); Specific Gravity - Urine 1.025 (1.005-1.025)
[2025-03-03] MEDS: Butalb/Acetamin/Caff 50/325/40 TABLET 1 TAB PO (21:32)
[2025-03-03 21:51] VITALS: BP 121/57; PULSE 80; RESP 16; TEMP 36.7; O2SAT 96
== END 2025-03-03 21:52 | disposition home or self-care (01) ==
PROVIDERS: Physician Assistant; Emergency Provider Internal Medicine; PCP Nurse Practitioner Family
DX: G43.909 Migraine, unspecified, not intractable, without status migrainosus (principal); Z03.818 Encounter for observation for suspected exposure to other biological agents ruled out
CPT/HCPCS: 36415; 80053; 81001; 83690; 84702; 85025; 87637; 96372; 99284; J1885

== ENCOUNTER 2025-04-07 14:35 | Outpatient (REF) | payer MEDICAID, SELFPAY ==
--- OUTSIDE RECORDS SUMMARY | 2025-04-03 11:00 | XMS_ITS | Encounter Summary ---
Author Organization [employer] Address [address] [place] [address] Care Team Providers Care Technical Training Coordinator Name Role Phone Carolyn Mendoza NP Primary Care Provider [phone] Reason for Visit * Consultation (Routine) - Pending Review Specialty Diagnoses / Procedures Referred By Joshua hinojosa Referred To Contact Nutrition Diagnoses Difficulty losing weight Carolyn Mendoza NP [address] [place] [address] Phone: tel: fax: Referral ID Status Reason Start Date Expiration Date Visits Requested Visits Authorized [id number] Pending Review Consult and Treat 01/27/2025 01/27/2026 1 1 Encounter Details Date Type Department Care Team ([facility] st Contact Info) Description 04/03/2025 11:00 AM EDT Nutrition [facility] DIABETES/NUTRITION [address] [place], [place] [phone] Kristal [address] [place], [place] [phone] Difficulty losing weight Social History Tobacco Use Types Packs/Day Years Used Date Smoking Tobacco: Never Passive Smoke Exposure: Never Smokeless Tobacco: Never Depression Answer Date Recorded Patient Health Questionnaire-9 Score 2 11/11/2024 Patient Health Questionnaire-9 Score 2 11/11/2024 Last PHQ-9: Questionnaire Data Not on file 0 11/11/2024 Housing Stability Answer Date Recorded What is your housing situation today? I have christ santizo 11/04/[address] you li ve. Do you have problems with any of the following? None of the above 11/04/2024 Food Insecurity Answer Date Recorded Within the past 12 months, y ou worried that your food would run out before you got money to buy more: Never True 05/29/2023 Within the past 12 months,th e food you bought just didn't last and you didn't have enough money to get more: Never True Transportation Answer Date Recorded In the past 12 months, has l ack of transportation kept you from medical appts, meetings, work or from getting things needed for daily living? No 05/29/2023 Utilities Answer Date Recorded In the past 12 months, has t he [employer], gas, oil or water [employer] threatened to shut off services in your home? No 05/29/2023 Depression Answer Date Recorded Patient Health Questionnaire-2 Score 1 11/11/2024 Internet Access Answer Date Recorded Internet Access Q1 Yes 07/01/2024 Internet Access Q2 Not on file 07/01/2024 Comments No Sex and Gender Information Value Date Recorded Sex Assigned at Female 06/09/2022 10:31 AM EDT Legal Sex Female 10:31 AM EDT Gender Identity Female 06/09/2022 10:31 AM EDT Sexual Orientation Don't know 06/09/2022 10 :31 AM EDT documented as of this encounter Last Filed Vital Signs Vital Sign Reading Time Taken Comments Blood Pressure - - Pulse - - Temperature - - Respiratory Rate - - Oxygen Saturation - - Inhaled Oxygen Concentration - - Weight 98 kg (216 lb) 04/04/2025 4:32 PM EDT Height 160 cm (5' 3 ) 04/04/2025 4:32 PM EDT Body Mass Index 38.26 04/04/2025 4:32 PM EDT documented in this encounter Progress Notes * Kristal Vincent RD - 04/03/2025 11:00 AM EDT In Person Visit Medical Diagnosis: R68.89 Difficulty in losing weight Anthropometrics: Ht:5' 3 (1.6 m), Wt:216 lb (98 kg), BMI: Body mass index is 38.26 kg/m??. Assessment: Patient (Pt) accepted nutrition education assessment appointment with RD. RD took Pt's weight. Weight revealed a decrease of 6.4 pounds since last noted here in Pt's chart. RD took 24 hour recall/ typical daily intake from Pt. Intake revealed Pt's diet is very high in refine carbohydrates and low in protein, fresh and cookedvegetables, fruit, healthy fats, fiber, and whole grains. Pt only did the first half of First appointment. Once the second half of First appointment is finished, RD will fill in nutrition diagnosis, nutrition Intervention, goals, Tailored made meal plan, monitoring and evaluation will be put into Pt's chart here. Thus, all is to be followed by Pt with their agreement. The second half of First nutrition education assessment appointment is scheduled in the last week of April 2025. Until then, Pt agreed to work on: Swapping out regular Coke soda with diet soda/ diet Coke, Coke Zero Going to [employer] for alternative chocolate sweets Taking a walk daily for 10 -15 minutes Food Allergies: Apples, watermelon Exercise: not at all Food Intolerance: Lactose Food Preferences: Lemonade-regular, Coke- regular, water, rice, pasta, breads, Amharic fries, ice cream, chocolate bars, Nutella, M&M's, Doritos, fried chicken, pork, beef, Griffin, chicken wings, pizza, ranch dressing, celery, dinorah, strawberries, oranges, kiwi, dragon fruit, pomegranate, cantaloupe, honey dew, pineapple, Ray sauce, broccoli Food Dislikes: Almonds, peanuts Frequency of Eating Out/ Restaurant: 3-4 x weekly Who Cooks?: Patient How much caffeine?: caffeinated soft drinks 3-4+ cups /day How much sugary beverages?: Soda, 3-4+ cups/ day/ Coke Diet History: Breakfast: Skips Water: 2 cups Snack: none Lunch: Rice: 2 cups Beans: 1 cup Meat/ protein: 8-10 oz. Lemonade: 2+ cups Snack: Doritos: 3-4 +oz. Coke: one 12 oz. regular Dinner: Burger Esa Whopper/ burger: 4 oz. Amharic fries: large Lemonade, re+ cups Or Coke, reg.: 2+ cups Snack: Ice cream coconut Popsicle: 2 Nutrition Diagnosis: 1st half of First appointment was done today. When the 2nd half of First appointment is finished/ done, this area will be filled in. Nutrition Intervention: 1st half of First appointment was done today. When the 2nd half of First appointment is finished/ done, this area will be filled in. Monitoring and Evaluation: 1st half of First appointment was done today. When the 2nd half of First appointment is finished/ done, this area will be filled in. Provider: Kristal Vincent RD, LDN documented in this encounter Plan of Treatment Upcoming Encounters Date Type Department Care Team (Late st Contact Info) Description 05/01/2025 3:00 PM EDT Clinical Support [facility] DIABETES/NUTRITION [address] [place] [address] [place] [address] documented as of this encounter Visit Diagnoses Diagnosis Difficulty losing weight documented in this encounter Additional Health Concerns Assessment Noted Time PHQ-9 Depression Total Score: 2 11/12/19 25 10:03 AM EDT documented as of this encounter Care Teams Technical Training Coordinator Relationship Specialty Start Date End Date Carolyn Mendoza NP [address] [place] [address] PCP - General Family Medicine 11/11/24 documented as of this encounter
--- OUTSIDE RECORDS SUMMARY | 2025-04-07 13:30 | XMS_ITS | Encounter Summary ---
Author Organization [employer] Address [address] [place] [address] Care Team Providers Care Gardening Manager Name Role Phone Carolyn Mendoza NP Primary Care Provider [phone] Reason for Visit * Reason Comments Follow-up Encounter Details Date Type Department Care Team ([facility] Contact Info) Description 04/07/2025 1:30 PM EDT Office Visit [facility] MEDICINE [address] [place], [place] [phone] Carolyn Mendoza NP [address] [place], [place] [phone] Benign acanthosis nigricans (Primary Dx); Class 2 obesity; Hyperglycemia Social History Tobacco Use Types Packs/Day Years Used Date Smoking Tobacco: Never Passive Smoke Exposure: Never Smokeless Tobacco: Never Tobacco Cessation:Counseling Given: Not Answered Depression Answer Date Recorded Patient Health Questionnaire-9 [...] the past 12 months, has t he electric, gas, oil or water company threatened to shut off services in your [...] Sign Reading Time Taken Comments Blood Pressure 114/80 04/07/2025 1:44 PM EDT Pulse 101 04/07/2025 1:44 PM EDT Temperature 37.6 C (99.7 F) 04/07/2025 1:44 PM EDT Respiratory Rate 16 04/07/2025 1:44 PM EDT Oxygen Saturation 98% 04/07/2025 1:44 PM EDT Inhaled Oxygen Concentration - - Weight 97.1 kg (214 lb) 04/07/2025 1:44 PM EDT Height - - Body Mass Index 37.91 04/04/2025 4:32 PM EDT documented in this encounter Plan of Treatment Upcoming Encounters Date Type Department Care Team (Late st Contact Info) Description 05/01/2025 3:00 PM EDT Clinical Support [facility] DIABETES/NUTRITION [address] [place] [address] [place] [address] Scheduled Orders Name Type Priority Associated Diagnoses Orde r Schedule Basic Metabolic Panel Lab Routine Benign acanthosis nigricans Expected: 04/07/2025 (Approximate), Expires: 04/07/2026 Hemoglobin A1c Lab Routine Class 2 obesity Expected: 04/07/2025 (Approximate), Expires: 04/07/2026 TSH W/Reflex to FT4 Lab Routine Class 2 obesity Expected: 04/07/2025 (Approximate), Expires: 04/07/2026 documented as of this encounter Visit Diagnoses Diagnosis Benign acanthosis nigricans- Primary Class 2 obesity Hyperglycemia Other abnormal glucose documented in this encounter Additional Health Concerns Assessment Noted Time PHQ-9 Depression Total Score: 2 11/12/19 10:03 AM EDT documented as of this encounter Care Teams Gardening Manager Relationship Specialty Start Date End Date Carolyn Mendoza NP [address] [place] [id number] PCP - General Family Medicine 11/11/24 documented as of this encounter
--- OUTSIDE RECORDS SUMMARY | 2025-04-07 14:37 | XMS_ITS | Encounter Summary ---
Author Organization [employer] Address [address] [place] [address] [address] [place] [address] Care Team Providers Care Metal Hardener Name Role Phone Karlee Castillo MD Primary Care Provider [phone] Carolyn Mendoza NP Primary Care Provider [phone] Encounter Details Date Type Department Care Team (Late st Contact Info) Description 12/05/2022 Orders Only [facility] MEDICINE [address] [place], [place] [phone] Karlee Castillo MD [address] [place], [place] [phone] Allergic rhinitis, unspecified seasonality, unspecified trigger (Primary Dx) Social History Tobacco Use Types Packs/Day Years Used Date Smoking Tobacco: Never Smokeless Tobacco: Never Comments Unknown Sex and Gender Information Value Date Recorded Sex Assigned at Female 06/09/2022 10:31 AM EDT Legal Sex Female 10:31 AM EDT Gender Identity Female 06/09/2022 10:31 AM EDT Sexual Orientation Don't know 06/09/2022 10 :31 AM EDT COVID-19 Exposure Response Date Recorded In the last 10 days, have yo u been in contact with someone who was confirmed or suspected to have Coronavirus/COVID-19? No / Unsure 12/02/2022 2:29 PM EDT documented as of this encounter Plan of Treatment Upcoming Encounters Date Type Department Care Team (Late st Contact Info) Description 05/01/2025 3:00 PM EDT Clinical Support [facility] DIABETES/NUTRITION [address] [place], [place] [phone] Kristal Vincent [address] [place] [address] documented as of this encounter Procedures Procedure Name Priority Date/Time Associated Diagnosis Comments GROSS AND MICROSCOPIC LEVEL 3 Routine 03/07/2023 1:48 PM EDT Allergic rhinitis, unspecified seasonality, unspecified trigger BLOOD CULTURE (SECOND) Routine 03/07/2023 9:30 AM EDT Allergic rhinitis, unspecified seasonality, unspecified trigger BLOOD CULTURE (FIRST) Routine 03/07/2023 8:29 AM EDT Allergic rhinitis, unspecified seasonality, unspecified trigger LACTIC ACID Routine 03/07/2023 8:29 AM EDT Allergic rhinitis, unspecified seasonality, unspecified trigger documented in this encounter Results * Gross and Microscopic Level 3 (03/07/2023 1:48 PM EDT) 03/07/2023 1:48 PM EDT 03/09/2023 9:20 AM EDT [facility] LABS - 03/11/2023 10:10 AM EDT ----- ------- Name: Shasta Glass Age/Sex: 18/F : 2005 Unit#: [id number] Attend Dr: Domenico Best MD Re03/07/23 Status: [facility] Location: [facility] Disch: ----- ------- SPEC : [id number] RECD: 03/09/23 STATUS: JESI PERRIN NUM: [id number] KEEGAN: 03/07/23-[address]: Domenico Best MD ENTERED: 03/09/23 SP TYPE: Surgical OTHR DR: Karlee Castillo MD ORDERED: Gross Micro L3 Diagnosis Gallbladder, cholecystectomy: Acute and chronic cholecystitis; cholelithiasis; reactive lymph node(s). Clinical History Pre-Op Dx: Abd pain Post-Op Dx: Acute cholecystitis Microscopic Description Microscopic sections reviewed. Material Received Gallbladder Gross Description Received in formalin labeled gallbladder is an 8.5 x 2.0-2.5 x 1.5-2.5 cm intact, smooth and shaggy, guevara, blue-purple gallbladder resected in continuity with 0.25 cm of clipped cystic duct with attached hemostat clips. Upon opening the gallbladder contains scant clear tenacious bile and several multifaceted, hard, yet, friable yellow-green choleliths ranging from 0.7-0.9 cm in greatest dimension which extend into and are lodged within the neck of the gallbladder immediately proximal to the margin of resection of the cystic duct. The mucosa is finely reticulated, focally denuded, ulloa and ulloa-brown. On sectioning the wall is homogeneous, fibrous, ulloa-pink and measures up to 0.2 cm in thickness. A 0.7 cm congested, ulloa-brown cystic duct lymph node is identified immediately adjacent to the margin of resection of the cystic duct. Beautician Apprentice sections are submitted in cassettes A1 and A2 to include the cystic duct and cystic duct lymph node submitted in cassette A2. CEDS Copies To: Domenico Best MD [address] [place] [address], [address] Floor [place], [place] [phone] [email or web address] CONTINUED ON NEXT PAGE ----- ------- Name: Shasta Glass Age/Sex: 18/F : 2005 Unit#: [id number] Attend Dr: Domenico Best MD Re03/07/23 Status: [facility] Location: [facility] Disch: ----- ------- SPEC : [id number] RECD: 03/09/23 STATUS: JESI PERRIN NUM: [id number] KEEGAN: 03/07/[address] [facility] [address]: Domenico Best MD ENTERED: 03/09/23 SP TYPE: Surgical OTHR DR: Karlee Castillo MD ORDERED: Gross Micro L3 Copies To: (Continued) Karlee Castillo MD [address] [place] [address] ----- ------- Signed (signature on file) Patrice Martell MD 03/11/23 1010 ----- ------- END OF REPORT [facility] External Provider LAB CYT OLOGY ORDERABLES Final Result Performing Organization Address [facility] Co de Phone Number [facility] [address] [place] [address] [phone] * Blood Culture (Second) (03/07/2023 9:30 AM EDT) Blood Venous blood specimen / Unknown 03/07/2023 9:30 AM EDT 03/07/2023 9:33 AM EDT Comment:Blood [facility] LABS - 03/12/2023 11:34 AM EDT Blood Culture (Second) No growth after 5 days. Specimen Source: Blood [facility] Exter nal Provider LAB MICROBIOLOGY - GENERAL ORDERABLES Final Result Performing Organization Address [facility] de Phone Number [facility] [address] [place] [address] [phone] * Blood Culture (First) (03/07/2023 8:29 AM EDT) Blood Venous blood specimen / Unknown 03/07/2023 8:29 AM EDT 03/07/2023 8:41 AM EDT Comment:Blood [facility] LABS - 03/12/2023 10:41 AM EDT Blood Culture (First) No growth after 5 days. Specimen Source: Blood [facility] Exter nal Provider LAB MICROBIOLOGY - GENERAL ORDERABLES Final Result Performing Organization Address [facility] de Phone Number [facility] [address] [place] [address] [phone] * Lactic Acid (03/07/2023 8:29 AM EDT) Lactic Acid 0.7 0.5 - 2.0 mmol/L [facility] 03/07/2023 8:29 AM EDT 03/07/2023 8:41 AM EDT [facility] External Provider LAB BLO OD ORDERABLES Final Result [facility] [address] [place] [phone] documented in this encounter Visit Diagnoses Diagnosis Allergic rhinitis, unspecified seasonality, unspecified trigger- Primary documented in this encounter Care Teams Metal Hardener Relationship Specialty Start Date End Date Karlee Castillo MD [address] [place] [address] PCP - General Family Medicine 11/10/16 08/29/24 Carolyn Mendoza NP [address] [place] [address] PCP - General Family Medicine 11/11/24 documented as of this encounter
--- OUTSIDE RECORDS SUMMARY | 2025-04-07 14:37 | XMS_ITS | Encounter Summary ---
Author Organization [email or web address] Address [address] [place] [address] 7t [place] [address] Care Team Providers Care Vibrator Operator Name Role Phone Carolyn Mendoza NP Primary Care Provider [phone] Reason for Visit * Reason Onset Date Comments Results 11/14/2024 Encounter Details Date Type Department Care Team ([facility] st Contact Info) Description 11/14/2024 Telephone [facility] MEDICINE [address] [place], [place] [phone] Carolyn Mendoza NP [address] [place], [place] [phone] Results Social History Tobacco Use Types Packs/Day Years [...] AM EDT documented as of this encounter Miscellaneous Notes * Telephone Encounter - Rae Glasgow - 11/14/2024 12:48 PM EDT TC from pt requesting call back regarding Results. Type of results: CBC, Comprehensive Metabolic Panel Date when done: 11/11 Facility: [facility] documented in this encounter Plan of Treatment Upcoming Encounters Date Type Department Care Team (Late st Contact Info) Description 05/01/2025 3:00 PM EDT Clinical Support [facility] DIABETES/NUTRITION [address] [place] [address] [place] [address] documented as of this encounter Visit Diagnoses Not on filedocumented in this encounter Additional Health Concerns Assessment Noted Time PHQ-9 Depression Total Score: 2 11/12/19 10:03 AM EDT documented as of this encounter Care Teams Vibrator Operator Relationship Specialty Start Date End Date Carolyn Mendoza NP [address] [place] [address] PCP - General Family Medicine 11/11/24 documented as of this encounter
--- OUTSIDE RECORDS SUMMARY | 2025-04-07 14:37 | XMS_ITS | Encounter Summary ---
Author Organization [employer] Address [address] [place] [address] 7t [place] [address] Care Team Providers Care Nurse Special Name Role Phone Karlee Castillo MD Primary Care Provider [phone] Carolyn Mendoza NP Primary Care Provider [phone] Reason for Visit * Reason Onset Date Comments Referral 12/01/2022 Encounter Details Date Type Department Care Team ([facility] st Contact Info) Description 12/01/2022 Telephone [facility] MEDICINE [address] [place], [place] [phone] Karlee Castillo MD [address] [place], [place] [phone] Referral Social History Tobacco Use Types Packs/Day Years [...] PM EDT documented as of this encounter Miscellaneous Notes * Telephone Encounter - Bianca Baca - 12/18/2022 2:30 PM EDT Pt was called given number to [employer] phone number [phone] also was told letter was mailed with office information and was informed office usually will call her with an appointment. Pt understood * Telephone Encounter - Opal Abrams - 12/18/2022 1:51 PM EDT Tc from patients Mom requesting the status of referral for allergy. Substation Superintendent gave Mom information on letter to call and make appt. Patients Mom states that phone number [phone] is the billing deptand they don't have any referral. Substation Superintendent sees notes that referral and diagnoses were sent 12/08/22. * Telephone Encounter - Karlee Castillo MD - 12/05/2022 9:27 AM EDT referred * Telephone Encounter - Umm Pinto - 12/01/2022 3:01 PM EDT Tc from pt requesting status on message previously sent. Please contact mother at [phone] * Telephone Encounter - Nikolai Camara - 12/01/2022 2:51 PM EDT Tc from pt requesting a referral to be seen by an bean roaster specialist requesting to have PCP recommend pt to a specialist. Please contact pt at [phone] documented in this encounter Plan of Treatment Upcoming Encounters Date Type Department Care Team (Late st Contact Info) Description 05/01/2025 3:00 PM EDT Clinical Support [facility] DIABETES/NUTRITION [address] [place] [address] [place], [place] [phone] documented as of this encounter Visit Diagnoses Not on filedocumented in this encounter Care Teams Nurse Special Relationship Specialty Start Date End Date Karlee Castillo MD [address] [place] [address] PCP - General Family Medicine 11/10/16 08/29/24 Carolyn Mendoza NP [address] [place] [address] PCP - General Family Medicine 11/11/24 documented as of this encounter
--- OUTSIDE RECORDS SUMMARY | 2025-04-07 14:37 | XMS_ITS | Clinical Summary ---
Author Organization [employer] [facility] Address [address] [place] [phone] Care Team Providers Care Carbonator Name Role Phone Unavailable Primary Care Provider Unavailabl e Social History Tobacco Use Types Packs/Day Years Used Date Smoking Tobacco: Never Assessed Comments Unknown Sex and Gender Information Value Date Recorded Sex Assigned at Not on file Legal Sex Female 5:19 AM EST Gender Identity Not on file Sexual Orientation Not on file Plan of Treatment Upcoming Encounters Date Type Department Care Team (Late st Contact Info) Description 10/17/2025 2:00 PM EDT Consult Bariatric Surgery [address] [place] [phone] Cheryle Jane MD [address] [place] [phone] Health Maintenance Due Date Last Done Comments Gonorrhea/Chlamydia Screening 2005 HPV Vaccines (1 - 3-dose series) 2018 Meningococcal B Vaccine (1 o f 2 - Standard) 2019 DTaP,Tdap,and Td Vaccines (1 - Tdap) 2022 Hepatitis B Vaccines (1 of 3 - 19+ 3-dose series) 2022 Cervical Cancer Screening: P ap Smear 02/07/2024 COVID-19 Vaccine (1 - 2023-2 5 season) 2024 Depression Screening 08/10/2024 HIV Screening 01/20/2025 Hepatitis C Screening 01/20/2025 Social Influencers of Health Screening 01/20/2025 Influenza Vaccine (#1) 2025 HIB Vaccines Aged Out No longer eligi ble based on patient's age to complete this topic Hepatitis A Vaccines Aged Out No long er eligible based on patient's age to complete this topic IPV Vaccines Aged Out No longer eligi ble based on patient's age to complete this topic MMR Vaccines Aged Out No longer eligi ble based on patient's age to complete this topic Meningococcal ACWY Vaccine Aged Out N o longer eligible based on patient's age to complete this topic Pneumococcal Vaccine: Pediat rics (0 to 5 Years) and At-Risk Patients (6 to 49 Years) Aged Out No longer eligible b ased on patient's age to complete this topic RSV Immunization Patients Un tony 20 months Aged Out No longer eligible b ased on patient's age to complete this topic Varicella Vaccines Aged Out No longer eligible based on patient's age to complete this topic Insurance MEDICAID - [place]
--- OUTSIDE RECORDS SUMMARY | 2025-04-07 14:38 | XMS_ITS | Clinical Summary ---
Author Organization [facility] Address [address] [place] [address] Care Team Providers Care Human Services Assistant Name Role Phone Unavailable Primary Care Provider [...] 2022 Imm-Hepatitis B (1 of 3 - 19 + 3-dose series) 2022 Cervical Cancer Screening 02/07/2024 Pap Smear 02/07/2024 [id number] ( season) 04/10/202401/02/ 021, 12/11/2020 Alcohol and Drug Screen 08/10/2024 Depression Annual Screen 08/10/2024 Imm-Influenza (#1) 2025 Cervical Ablation/Cold-Knife Conization Discontinued Cervical Cryotherapy Discontinued Colposcopy Discontinued Endometrial Biopsy Discontinued Excision/Leep Discontinued HPV Genotyping Discontinued Vaginal Pap Discontinued Vulvoscopy Discontinued [address]
--- OUTSIDE RECORDS SUMMARY | 2025-04-07 14:38 | XMS_ITS | Clinical Summary ---
Author Organization [employer] Address [address] [place] [address] 7t [place] [address] Care Team Providers Care Crop Roller Name Role Phone Carolyn Mendoza NP Primary Care Provider [phone] Allergies Active Allergy Reactions Criticality Noted Date Comments Dog Epithelium 01/25/2025 Gramineae Pollens 11/11/2024 Medications phentermine 15 MG capsuleIndicatio ns:Class 2 severe obesity due to excess calories with serious comorbidity and body mass index (BMI) of 38.0 to 38.9 in adult (CMS/HCC),Diffic ulty losing weight Take 1 capsule (15 mg) by mouth before breakfast. 30 capsule 5 Active Tirzepatide-Weig ht Management (Zepbound) 2.5 MG/0.5ML solution auto-injector Inject 0.5 mL (2.5 mg) under the skin 1 (one) time per week for 28 days. 2 mL 5 05/05/20 25 Active Tirzepatide-Weig ht Management (Zepbound) 2.5 MG/0.5ML solution auto-injectorInd ications:Morbid obesity (CMS/HCC) Inject 0.5 mL (2.5 mg) under the skin 1 (one) time per week for 28 days. 2 mL 5 03/24/20 25 Active Problems Problem Noted Date Diagnosed Date Benign acanthosis nigricans 04/07/2025 Hyperglycemia 04/07/2025 Difficulty losing weight 01/27/2025 Assessment & Plan (01/29/2025 2:58 PM EDT): Referral to nutrition Unwanted fertility 01/25/2025 Class 2 obesity with body ma ss index (BMI) of 38.0 to 38.9 in adult 12/25/2024 Assessment & Plan (01/29/2025 3:01 PM EDT): Pt reports inability to lose weight, impacting self confidence. Referral to nutrition Zepbound denies, trial phetermine, no contraindications, may stop if side effects occur, Return to clinic in 3 months, sooner prn Assessment & Plan (12/25/2024 10:00 AM EDT): Pt interested in GLP-1 trial Metabolic labs ordered Healthcare maintenance 11/11/2024 Assessment & Plan (12/25/2024 9:58 AM EDT): Pt reports pap is scheduled, established with eye care, Declines acute concerns, anticipatory guidance reviewed Metabolic labs ordered STI screen declined Dietary counseling 11/11/2024 Assessment & Plan (12/25/2024 10:00 AM EDT): Dietary Recommendations: Fruits, vegetables, whole grains, protein foods, and fat-free or low-fat dairy products are healthy choices. Eat different types of protein foods in your diet. This can include seafood, lean meats, poultry, beans, peas, lentils, nuts, seeds, soy products, and eggs. Limit foods and beverages higher in added sugars, saturated fat, and sodium. Exercise Recommendations: At least 150 minutes of moderate-intensity physical activity per week, or an equivalent combination of moderate- and vigorous-intensity activity Exercise counseling 11/11/2024 Alpha thalassemia silent carrier 10/31/2024 Cholecystitis, acute 10/31/2024 Elevated blood pressure read ing without diagnosis of hypertension 10/31/2024 History of gastrointestinal disease 10/31/2024 Assessment & Plan (12/25/2024 9:59 AM EDT): Metabolic labs ordered Uses Occitan as primary spoken language 11/01/19 25 Class 2 obesity 10/31/2024 Visual impairment 11/26/2022 Allergic conjunctivitis, bilateral 11/26/2022 History of appendectomy 11/10/2016 Resolved Problems Problem Noted Date Diagnosed Date Resolved Date Constipation in 10/31/2024 10/31/2024 12/25/2024 Nausea and vomiting during 10/31/2024 12/25/2024 Obesity in 10/31/2024 025 Viral disease in mother during 10/31/2024 12/25/2024 Encounters Date Type Department Care Team Description 04/07/2025 1:30 PM EDT Office Visit [facility] [address] [place] [phone] Carolyn Mendoza NP Benign acanthosis nigricans (Primary Dx); Class 2 obesity; Hyperglycemia 04/07/2025 Travel 04/06/[address] [address] Adilene Christensen MA CHARTPREP 04/04/[address] [address] Carolyn Mendoza NP Care Management (C3 graduation) 04/03/2025 11:00 AM EDT Nutrition [facility] DIABETES/NUTRITION [address] [place] [address] Difficulty losing weight 04/03/2025 Travel 03/27/2025 Travel 03/21/[address] [address] Carolyn Mendoza NP Referral 03/09/[address] [address] Carolyn Mendoza NP Care Management (C3< follow up call) 03/03/2025 Orders Only GENERIC EXTERNAL DATA DEPARTMENT Provider, Generic External Data 03/01/[address] [address] Carolyn Mendoza NP Prior Authorization 02/21/[address] [address] Carolyn Mendoza NP Medication Question 02/16/[address] [address] Carolyn Mendoza NP Care Management (C3CM follow up call) 01/29/2025 Results Follow-Up [address] [address] Carolyn Mendoza NP Chlamydia/N. Gonorrhoeae RNA, TMA, Urogenitial 01/27/2025 1:30 PM EDT Office Visit [address] [address] Carolyn Mendoza NP Class 2 severe obesity due to excess calories with serious comorbidity and body mass index (BMI) of 38.0 to 38.9 in adult (CMS/[facility]) (Primary Dx); Difficulty losing weight; Healthcare maintenance 01/27/2025 Travel 01/25/[address] [phone] Deborah Turner MA Chart Prep 01/19/2025 Patient Outreach [facility] [address] [place], [place] [phone] Carolyn Mendoza NP Pre-visit Planning (SDOH was already completed) 01/19/[address] [phone] Carolyn Mendoza NP Care Management ([facility] TC #[id number]) 01/17/[address] [phone] Deborah Turner MA from Last 3 Months Immunizations Immunization Administration Dates Next Due DTaP 03/17/2007, 5,09/16/2004,01/29 DTaP, 5 pertussis antigens 2003 HPV 9-Valent 04/27/2015,12/22/2014 HPV, Quadrivalent 04/27/2015,12/22/2014 HPV, Unspecified 08/29/2015 Hep A, Unspecified 11/05/2015,04/27/2015 Hep A, ped/adol, 2 dose 11/05/2015,04/27/2015 Hep B, Adolescent or Pediatric 01/30/2004,2002,2003 HiB, unspecified 05/05/2005,01/30/2004 Hib (PRP-T) 2003 IPV 03/17/2007, 5,01/30/2004,07/01 Influenza injectable quadriv alent preservative free 10/09/2020,08/23/2018,05/31/2015 Influenza, IIV3, injectable 10/09/2020, 9,05/31/2015 MMR 03/17/2008,09/16/2004 Meningococcal ACWY, unspecified 10/09/2020,12/22 Meningococcal MCV4P ACYW-135 10/09/2020,12/23/19 Pfizer Covid-19 Vaccine 12+ 11/11/2024 Pneumococcal Conjugate PCV 13 2003 Tdap 05/10/2024,12/22/2014 Varicella 09/15/2011,09/16/2004 Social History Tobacco Use Types Packs/Day Years Used Date Smoking Tobacco: Never Passive Smoke Exposure: Never Smokeless Tobacco: Never Tobacco Cessation:Counseling Given: Not Answered Depression Answer Date Recorded Patient Health Questionnaire-9 Score 2 11/11/2024 Patient Health Questionnaire-9 Score 2 11/11/2024 Last PHQ-9: Questionnaire Data Not on file 0 11/11/2024 Housing Stability Answer Date Recorded What is your housing situation today? I have christ darlyn 11/04/[address] you li [...] Don't know 06/09/2022 10 :31 AM EDT Last Filed Vital Signs Vital Sign Reading Time Taken Comments Blood Pressure 114/80 04/07/2025 1:44 PM EDT Pulse 101 04/07/2025 1:44 PM EDT Temperature 37.6 C (99.7 F) 04/07/2025 1:44 PM EDT Respiratory Rate 16 04/07/2025 1:44 PM EDT Oxygen Saturation 98% 04/07/2025 1:44 PM EDT Inhaled Oxygen Concentration - - Weight 97.1 kg (214 lb) 04/07/2025 1:44 PM EDT Height 160 cm (5' 3 ) 04/04/2025 4:32 PM EDT Body Mass Index 37.91 04/04/2025 4:32 PM EDT Plan of Treatment Upcoming Encounters Date Type Department Care Team (Late st Contact Info) Description 05/01/2025 3:00 PM EDT Clinical Support [facility] DIABET[facility]/NUTRITION [address] [place] [address] Kristal Vincent, BC [address] [place] [address] Health Maintenance Due Date Last Done Comments Family Planning (PISQ) 2018 Meningococcal B Vaccine (1 of 2 - Standard) 2019 Pap Smear 02/07/2024 Influenza Vaccine (#1) 2025 , 10/09/2020, 08/23/2018, Additional history exists Lipid Panel 10/09/2025 10/09/2020 Alcohol/Substance Use Screening 11/11/2025 11/11/2024 Depression Screening 11/11/2025 11/11/2024, 11/12/19 SDOH Screening 11/11/2025 11/11/2024 Chlamydia and Gonorrhea Screening 01/27/2026 01/27/2025, 10/12/2023, 10/09/2020, Additional history exists Disability Screening 01/27/2026 01/27/2025 Tobacco Screening 04/07/2026 04/07/2025 DTaP/Tdap/Td Vaccines (8 - Td or Tdap) 05/10/2034 05/10/2024, 12/22/2014, 03/17/2007, Additional history exists Zoster Vaccines (1 of 2) 2053 RSV Patients and Patients Aged 60 years or older (1 - 1-dose 75+ series) 2078 Pneumococcal Vaccine: Pediatrics (0 to 5 Years) and At-Risk Patients (6 to 49) Years Aged Out 2003 No longer eligible based on patient's age to complete this topic Hepatitis B Vaccines Completed 01/30/2004, 2003, 2003 HIB Vaccines Completed 05/05/2005, 01/09, 2003 IPV Vaccines Completed 03/17/2007, 02/2005, 01/30/2004, Additional history exists HPV Vaccines Completed 08/29/2015, 04/10, 04/27/2015, Additional history exists Hepatitis A Vaccines Completed 11/05/2015, 11/05/2015, 04/27/2015, Additional history exists HIV Screening Completed 10/09/2020 Hepatitis C Screening Completed 10/09/2020 Meningococcal Vaccine Completed 10/09/2020 , 10/09/2020, 12/22/2014, Additional history exists COVID-19 Vaccine Completed 11/11/2024, , 12/11/2020 RSV under 20 months Aged Out No longe r eligible based on patient's age to complete this topic Rotavirus Vaccines Aged Out No longer eligible based on patient's age to complete this topic Procedures Procedure Name Priority Date/Time Associated Diagnosis Comments URINALYSIS, COMPLETE, WITH REFLEX TO CULTURE Routine 03/03/2025 8:38 PM EDT CHLAMYDIA/N. GONORRHOEAE RNA, TMA, UROGENITAL Routine 01/27/2025 1:57 PM EDT Healthcare maintenance ZZZ HISTORICAL HEPATITIS C AB W/REFL TO HCV RNA, QN, PCR Routine 10/09/2020 2:01 PM EST HIV 1/2 ANTIGEN/ANTIBODY, FOURTH GENERATION W/RFL Routine 10/09/2020 2:01 PM EST LIPID PANEL, STANDARD Routine 10/09/2020 2:01 PM EST from Last 3 Months or Most Recently Relevant to Health Maintenance Results * Urinalysis, Complete, with Reflex to Culture (03/03/2025 8:38 PM EDT) Color Urine Yellow [facility] Appearance Urine Clear [facility] PH 5.5 5.0 - 9.0 [facility] Glucose Urine UA Negative Negative mg/dL [facility] Urine Blood Negative Negative [facility] Specific Sharon - Urine 1.025 1.005 - 1.025 [facility] Urine Protein Negative Neg-Trace mg/dL [facility] Urine Ketones Trace Negative mg/dL [facility] Nitrite Urine Negative Negative [facility] Leukocyte Esterase Urine Negative Negative [facility] RBC Urine 0-2 0 - 2 /HPF [facility] Urine WBC 0-5 0 - 5 /HPF [facility] Urine Squamous Epithelial Cell 0-2 0 - 2 /HPF [facility] Urine Bacteria None Seen None Seen [facility] Hyaline Casts, Urine 0-2 0 - 2 /LPF [facility] 03/03/2025 8:38 PM EDT 03/03/2025 8:41 PM EDT Narrative [facility] - 03/03/2025 9:00 PM EDT [id number], Clean Catch us Generic External Data Provider LAB URINE ORDERAB LES Final Result [facility] [address] [place] [address] [phone] * Chlamydia/N. Gonorrhoeae RNA, TMA, Urogenitial (01/27/2025 1:57 PM EDT) CT PCR NOT DETECTED Not Detect. [facility] Comment:A not detected test result does not exclude the possibilityof infection because test results can be affected byimproper specimen collection, concurrent antibiotic therapy,or the number of organisms in the specimen which may bebelow the sensitivity of the test. As with many diagnostictests, results from the Xpert CT/NG assay should beinterpreted in conjunction with other laboratory andclinical data available to the clinician.Xpert CT/NG performance has not been evaluated in patientsless than 14 years of age. The assay should not be used forthe evaluationof suspected sexual abuse or for other medico-legalindications. Additional testing is recommended in anycircumstance when false positive or false negative resultscould lead to adverse medical, social or psychologicalconsequences. NG PCR NOT DETECTED Not Detect. [facility] Comment:A not detected test result does not exclude the possibilityof infection because test results can be affected byimproper specimen collection, concurrent antibiotic therapy,or the number of organisms in the specimen which may bebelow the sensitivity of the test. As with many diagnostictests, results from the Xpert CT/NG assay should beinterpreted in conjunction with other laboratory andclinical data available to the clinician.Xpert CT/NG performance has not been evaluated in patientsless than 14 years of age. The assay should not be used forthe evaluationof suspected sexual abuse or for other medico-legalindications. Additional testing is recommended in anycircumstance when false positive or false negative resultscould lead to adverse medical, social or psychologicalconsequences. Urine (Urine, Random) 01/27/2025 1:57 PM EDT 01/27/2025 4:17 PM EDT Narrative [facility] - 01/27/2025 6:21 PM EDT Urine us Carolyn Mendoza NP LAB MICROBIOLOGY - GENERAL ORDER SALAZAR Final Result [facility] [address] [place] [address] [phone] * HEPATITIS C AB W/REFL TO HCV RNA, QN, PCR (10/09/2020 2:01 PM EST) HEPATITIS C ANTIBODY NON-REACT KATY NON-REACT KATY [facility] INDEX 0.01 <1.00 [facility] Comment: HCV antibody was non-reactive. There is no laboratory evidence of HCV infection. In most cases, no further action is required. However, if recent HCV exposure is suspected, a test for HCV RNA (test code 52357) is suggested. For additional information please refer to http://[employer].SLI Systems/faq/NEO83p3 (This link is being provided for informational/ educational purposes only.) 10/09/2020 2:01 PM EST us Karlee Castillo MD HISTORICAL/NON ORDERABLE LABS Fi nal Result [facility] [address] [place] [address], * HIV 1/2 ANTIGEN/ANTIBODY,FOURTH GENERATION W/RFL (10/09/2020 2:01 PM EST) HIV-1/2 ANTIGEN AND ANTIBODIES, 4TH GENERATION W/ REFLEX NON-REACT KATY NON-REACT KATY [facility] Comment: HIV-1 antigen and HIV-1/HIV-2 antibodies were not detected. There is no laboratory evidence of HIV infection. PLEASE NOTE: This information has been disclosed to you from records whose confidentiality may be protected by state law. If your state requires such protection, then the state law prohibits you from making any further disclosure of the information without the specific written consent of the person to whom it pertains, or as otherwise permitted by law. A general authorization for the release of medical or other information is NOT sufficient for this purpose. For additional information please refer to http://[employer].SLI Systems/faq/RRR462 (This link is being provided for informational/ educational purposes only.) The performance of this assay has not been clinically validated in patients less than 2 years old. 10/09/2020 2:01 PM EST us Karlee Castillo MD LAB BLOOD ORDERABLES Final Resul t Performing Organization Address [facility] de Phone Number [facility] [address] * (ABNORMAL) LIPID PANEL, STANDARD (10/09/2020 2:01 PM EST) Chol/HDLC Ratio 5.8(H) <5.0 (calc) [facility] Cholesterol, Total 233(H) <170 mg/dL [facility] HDL Cholesterol 40(L) >45 mg/dL [facility] LDL Cholesterol 166(H) <110 mg/dL (calc) [facility] Comment: LDL-C is now calculated using the Senthil calculation, which is a validated novel method providing better accuracy than the Friedewald equation in the estimation of LDL-C. John SS et al. YANG. 2013;310(19): 9856-1929 (http://education.DxTerity.Spockly/faq/GVU309) Non-HDL Cholesterol 193(H) <120 mg/dL (calc) [facility] Comment: For patients with diabetes plus 1 major ASCVD risk factor, treating to a non-HDL-C goal of <100 mg/dL (LDL-C of <70 mg/dL) is considered a therapeutic option. Triglycerides 135(H) <90 mg/dL [facility] 10/09/2020 2:01 PM EST us Karlee Castillo MD LAB BLOOD ORDERABLES Final Resul t Performing Organization Address [facility] Co de Phone Number [facility] [address] from Last 3 Months or Most Recently Relevant to Health Maintenance [facility] [address] [place] [phone] Care Teams Crop Roller Relationship Specialty Start Date End Date Carolyn Mendoza NP [address] [place] [phone] PCP - General Family Medicine 11/11/24
--- OUTSIDE RECORDS SUMMARY | 2025-04-07 14:38 | XMS_ITS | Encounter Summary ---
Author Organization [employer] Address [address] [facility] 7t [place] [address] Care Team Providers Care Ent Consultant Name Role Phone Carolyn Mendoza NP Primary Care Provider [phone] Reason for Visit * Reason Onset Date Comments CHARTPREP 04/06/2025 Encounter Details Date Type Department Care Team ([facility] st Contact Info) Description 04/06/2025 Telephone [facility] [address] [place], [place] [phone] Adilene Christensen MA CHARTPREP Social History Tobacco Use Types Packs/Day Years [...] t he electric, gas, oil or water [employer] threatened to shut off services in your [...] encounter Miscellaneous Notes * Telephone Encounter - Adilene Christensen MA - 04/06/2025 3:26 PM EDT Chart Prep Labs: done Images: done Referrals: complete Vaccines due: Flu and MCV4 Screenings: pap smear Overdue care gaps: Not applicable documented in this encounter Plan of Treatment Upcoming Encounters Date Type Department Care Team (Late st Contact Info) Description 05/01/2025 3:00 PM EDT Clinical Support [facility] DIABETES/NUTRITION [address] [place] [address] [place] [address] documented as of this encounter Visit Diagnoses Not on filedocumented in this encounter Additional Health Concerns Assessment Noted Time PHQ-9 Depression Total Score: 2 11/12/19 10:03 AM EDT documented as of this encounter Care Teams Ent Consultant Relationship Specialty Start Date End Date Carolyn Mendoza NP [address] [place], [place] [phone] PCP - General Family Medicine 11/11/24 documented as of this encounter
--- OUTSIDE RECORDS SUMMARY | 2025-04-07 14:38 | XMS_ITS | Encounter Summary ---
Author Organization [employer] Address [address] [facility] 7[address] [place] [address] Care Team Providers Care Yarn Mercerizer Operator Helper Name Role Phone Carolyn Mendoza NP Primary Care Provider [phone] Encounter Details Date Type Department Care Team (Latest Contact Info) Description 04/07/2025 Travel Social History Tobacco Use Types Packs/Day Years [...] AM EDT documented as of this encounter Plan of Treatment Upcoming Encounters Date Type Department Care Team (Late st Contact Info) Description 05/01/2025 3:00 PM EDT Clinical Support [facility] DIABETES/NUTRITION [address] [place] [address] [place] [address] documented as of this encounter Visit Diagnoses Not on filedocumented in this encounter Additional Health Concerns Assessment Noted Time PHQ-9 Depression Total Score: 2 11/12/19 25 10:03 AM EDT documented as of this encounter Care Teams Yarn Mercerizer Operator Helper Relationship Specialty Start Date End Date Carolyn Mendoza NP [address] [place] [address] PCP - General Family Medicine 11/11/24 documented as of this encounter
--- OUTSIDE RECORDS SUMMARY | 2025-04-07 14:38 | XMS_ITS | Encounter Summary ---
Author Organization [employer] Address [address] [facility] [address] [place] [address] Care Team Providers Care Fish Culturist Name Role Phone Carolyn Mendoza NP Primary Care Provider Encounter Details Date Type Department Care Team (Latest Contact Info) Description 04/03/2025 Travel Social History Tobacco Use Types Packs/Day [...] Description 05/01/2025 3:00 PM EDT Clinical Support [facility] DIABETES/NUTRITION [address] [place] [address] [place] [address] documented as of this encounter Visit Diagnoses Not on filedocumented in this encounter Additional Health Concerns Assessment Noted Time PHQ-9 Depression Total Score: 2 11/12/19 25 10:03 AM EDT documented as of this encounter Care Teams Fish Culturist Relationship Specialty Start Date End Date Carolyn Mendoza NP [address] [place] [address] PCP - General Family Medicine 11/11/24 documented as of this encounter
--- OUTSIDE RECORDS SUMMARY | 2025-04-07 14:38 | XMS_ITS | Encounter Summary ---
Author Organization [employer] Address [address] [place] [address] [address]t [place] [address] Care Team Providers Care Inside Plant Supervisor Name Role Phone Carolyn Mendoza NP Primary Care Provider [phone] Reason for Visit * Reason Onset Date Comments Care Management 04/04/2025 [facility] graduation Encounter Details Date Type Department Care Team ([facility] Contact Info) Description 04/04/2025 Telephone [facility] MEDICINE [address] [place], [place] [phone] Carolyn Mendoza NP [address] [place] [address] Care Management ([facility] graduation) Social History Tobacco Use Types Packs/Day Years [...] encounter Miscellaneous Notes * Telephone Encounter - Becki Guaman - 04/04/2025 9:42 AM EDT CM Becki Guaman RN and CHW Kathy Shultz placed outbound call to patient. Patient's name, and address confirmed. Patient states is doing well with no recent illnesses or emergency room visits. Patient and are doing well. Patient attended regional sales engineer appointment and is scheduled for the second half of the appointment on 05/01/25 3pm, no questions. Patient is scheduled to follow up with pcp on 04/07/25 1:30pm. Referral was placed to Dr. Jane for weight management with an appointment scheduled for 10/17/25 2pm. No further questions or concerns. CM reinforced direct contact information or CHW for any additional questions or concerns. Education provided on Walk[facility]In Urgent Care located in [facility] of [facility]. Patient provided with after-hours line for [facility], , which offer night time triage service and option to transfer to military source operations specialist provider if needed. CM discussed with the patient progress made towards established goals. Patient notified is being graduated from the Care Management Program. Patient was educated on how to receive care management services in the future. Patient agrees with the plan and will contact us if any future needs arise. documented in this encounter Plan of Treatment Upcoming Encounters Date Type Department Care Team (Late st Contact Info) Description 05/01/2025 3:00 PM EDT Clinical Support [facility] DIABETES/NUTRITION [address] [place] [address] [place] [address] documented as of this encounter Visit Diagnoses Not on filedocumented in this encounter Additional Health Concerns Assessment Noted Time PHQ-9 Depression Total Score: 2 11/12/19 10:03 AM EDT documented as of this encounter Care Teams Inside Plant Supervisor Relationship Specialty Start Date End Date Carolyn Mendoza NP [address] [place] [address] PCP - General Family Medicine 11/11/24 documented as of this encounter
[2025-04-07 18:48] LABS: Anion Gap 11 (12-20); Blood Urea Nitrogen 9 mg/dL (9-16); Calcium 9.5 mg/dL (8.4-10.2); Carbon Dioxide 26 mmol/L (22-29); Chloride 107 mmol/L (96-108); Estimated Glomerular Filt Rate > 60; Potassium 4.1 mmol/L (3.3-5.1); Sodium 140 mmol/L (135-145)
[2025-04-08 03:47] LABS: Hemoglobin A1C 116.2028 umol/L; Total Hemoglobin (HGBA1C) 3205.5721 umol/L
== END 2025-04-07 14:36 | disposition home or self-care (01) ==
LOC: HO.HHCL 14:35
PROVIDERS: PCP Nurse Practitioner Family; Visit Provider Nurse Practitioner Family
DX: E66.812 Obesity, class 2 (principal); Q82.8 Other specified congenital malformations of skin
CPT/HCPCS: 36415; 80048; 83036; 84443